=== PATIENT | male | born 1935 | race Caucasian/White ===

== ENCOUNTER 2017-01-24 10:45 | Inpatient (IN) | payer OTHER | END 2017-01-30 15:11 | disposition home health service (06) | DRG 393 | LOC: ER 10:45 → EROBS 11:53 → 4S 12:45 | DX: K52.1 Toxic gastroenteritis and colitis (principal); E43 Unspecified severe protein-calorie malnutrition; C79.9 Secondary malignant neoplasm of unspecified site; E86.0 Dehydration; E87.6 Hypokalemia; K52.9 Noninfective gastroenteritis and colitis, unspecified; J44.9 Chronic obstructive pulmonary disease, unspecified; I10 Essential (primary) hypertension; I44.7 Left bundle-branch block, unspecified; D72.829 Elevated white blood cell count, unspecified; R00.1 Bradycardia, unspecified; E83.51 Hypocalcemia; Z87.891 Personal history of nicotine dependence; Z79.899 Other long term (current) drug therapy; Z80.0 Family history of malignant neoplasm of digestive organs; Z68.23 Body mass index [BMI] 23.0-23.9, adult ==

== ENCOUNTER 2017-02-13 08:03 | Inpatient (IN) | payer OTHER ==
[~2017-02-13] VITALS: Ht 167.6 cm; Wt 64.9 kg
--- NOTE | ~2017-02-13 | EKG ---
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[employer] : 1935 Requested By: Jt Shukla Order Number: [id number] MD: Jimy Lagos Measurements Intervals [place] Rate: 55 P: 81 [place]: 152 QRS: 37 QRSD: 129 T: 66 QT: 513 QTc: 491 Interpretive Statements Sinus rhythm Atrial premature complex Left bundle branch block Compared to ECG 01/26/2017 12:29:04 Atrial premature complex(es) now present Sinus bradycardia no longer present Electronically Signed On 02-13-2017 12:46:10 CDT by Jimy Lagos [email or web address] <ELECTRONICALLY SIGNED> By: Jimy Lagos MD 02/13/17 1246 0839 Jimy Lagos MD /MAXIMINO
--- NOTE | ~2017-02-13 | HC ---
[facility] [place] [address] CONSULTATION Name: GREG TIRADO Room #: 426-P ADM IN M.R.#: [id number] Admission: 02/13/17 Attend Phys: Leighton Salamanca DO Discharge: Date of : 33 Report #: [id number] THIS REPORT FOR: //name// CC: Carlo Salamanca DATE OF SERVICE: 02/19/2017 Clinically, No change. Continuing calcitriol, calcium and yesterday supplementation with magnesium. Calcium marginally increased at 5.4 from 5.3. Phosphorus improving from 4.5 down to 3.9. Magnesium still mildly low, but slightly higher at 1.7. Ionized calcium from yesterday is still low at 3.0. We will continue current regimen until lab studies improve and safety margin becomes acceptable. The patient may need additional medication if the lab does not improve in the next 1-2 days. <ELECTRONICALLY SIGNED> By: Kevin Marinelli MD 02/20/17 1321 1152 1340 Kevin Marinelli MD /nt
--- NOTE | ~2017-02-13 | HC ---
[facility] [place] [address] CONSULTATION Name: GREG TIRADO Room #: 426-P ADM IN M.R.#: [id number] Admission: 02/13/17 Attend Phys: Leighton Salamanca DO Discharge: Date of : 34 Report #: [id number] THIS REPORT FOR: //name// CC: Carlo Salamanca DATE OF SERVICE: 02/18/2017 No clinical change. The patient is now receiving higher dose of calcium and 2 doses per day of Rocaltrol. He is still on corticosteroids and PPIs, both of which can further lower serum calcium. Today labs shows calcium that dropped slightly to 5.3, phosphorus increased slightly at 4.5, ionized calcium pending, magnesium improved, but still low at 1.6, free T4 is slightly low TSH, marginally low 25-hydroxy vitamin D level prior to initiation of treatment, was low at 12.3. We will repeat dosage of intravenous magnesium sulfate and an effort to normalize serum magnesium, which is required to normalize serum calcium. Meanwhile, continuing current therapeutic regimen and repeating lab studies in the a.m. <ELECTRONICALLY SIGNED> By: Kevin Marinelli MD 02/19/17 1140 1100 1351 Kevin Marinelli MD /nt
--- NOTE | ~2017-02-13 | HC ---
[facility] [place] [address] CONSULTATION Name: GREG TIRADO Room #: 426-P [facility] IN M.R.#: [id number] Admission: 02/13/17 Attend Phys: Leighton Salamanca DO Discharge: 02/21/17 Date of : 34 Report #: [id number] THIS REPORT FOR: //name// CC: Carlo Salamanca DATE OF SERVICE: 02/21/2017 No clinical change. Now receiving 3 doses per day of calcitriol as well as prior doses of calcium. Calcium today increased at 5.6. Ionized calcium from yesterday stable at 3.0. Unfortunately, for unknown reasons, lab did not do phosphorus and magnesium which are necessary after yesterday's reinfusion of magnesium sulfate. We will instruct the lab to run on blood drawn this morning and readjust replacement if necessary. <ELECTRONICALLY SIGNED> By: Kevin Marinelli MD 02/23/17 1122 1034 1125 Kevin Marinelli MD /nt
--- NOTE | ~2017-02-13 | HC ---
[facility] [address] CONSULTATION Name: GREG TIRADO Room #: 426-P ADM IN M.R.#: [id number] Admission: 02/13/17 Attend Phys: Leighton Salamanca DO Discharge: Date of : 34 Report #: [id number] THIS REPORT FOR: //name// CC: Carlo Salamanca DATE OF SERVICE: 02/20/2017 DATE OF SERVICE: 02/20/2017. This is an endocrine progress note. No clinical change. Continuing current regimen. Calcium still low at 5.2. Ionized calcium from yesterday stable at 3.0. Magnesium still borderline low at 1.7 in spite of further magnesium infusion. We will increase calcitriol to t.i.d. and repeat magnesium infusion in an effort to slowly normalize lab results. <ELECTRONICALLY SIGNED> By: Kevin Marinelli MD 02/21/17 1021 1328 2224 Kevin Marinelli MD /nt
--- NOTE | ~2017-02-13 | HC ---
[facility] [place] [address] CONSULTATION Name: GREG TIRADO Room #: 426-P ADM IN M.R.#: [id number] Admission: 02/13/17 Attend Phys: Leighton Salamanca DO Discharge: Date of : 34 Report #: [id number] THIS REPORT FOR: //name// CC: Carlo Salamanca DO HISTORY OF PRESENT ILLNESS: This patient is well known to me for treatment of recurrent/metastatic malignant melanoma. He was recently discharged from [facility] with diarrhea, felt to be related to his earlier immunotherapy. He was readmitted through the Emergency Room with complaints of shortness of breath over the weekend. I saw him in the office on 02/09/2017 and he returned also on 02/12/2017 to receive IV infusions of magnesium and electrolytes to correct those abnormalities associated with his diarrhea. He and his report that he had worsening shortness of breath even prior to the IV fluids on Wednesday. He has also developed some numbness in his legs and hands. He denies chills and fever. In spite of his hypocalcemia, he had not had tetany or positive Chvostek sign. His earlier diarrhea did not show any organisms and again it was felt to be related to bowel toxicity from earlier Yervoy and Opdivo. He last received Yervoy on 12/21/2016 and his last dose of Opdivo on 01/12/2017. He has been on high doses of steroids with a taper last week to 60 mg prednisone in the morning and 40 with lunch with improvement in his diarrhea. His current stools are more formed. His prior melanoma history dates to September of 2016 when he was found to have recurrence of his melanoma with metastasis involving liver, bone and lung. On his recent PET scan from December, all these had disappeared and he was felt to be ONELIA/in remission. ALLERGIES: None known. PAST MEDICAL HISTORY: Also positive for COPD. FAMILY HISTORY: Noncontributory. SOCIAL HISTORY: He is a nondrinker and nonsmoker. He lives with his who is also present. REVIEW OF SYSTEMS: As in the history of present illness. His diarrhea has improved. He is very weak with poor p.o. and is clinically depressed. He has self described paresthesias. PHYSICAL EXAMINATION: [facility] [address] [place] [address] CONSULTATION Name: GREG TIRADO Room #: 6[facility] IN ..#: [id number] Admission: 02/13/17 Attend Phys: Leighton Salamanca DO Discharge: Date of : 34 Report #: [id number] GENERAL: Shows a pale and frail white male. HEENT: He was normocephalic. NECK: Supple. CARDIOVASCULAR: Normal S1 and S2. CHEST: Clear. BACK: Shows previous primary site for his melanoma. SKIN: Shows widespread seborrheic keratosis and scaling. ABDOMEN: No organomegaly or masses. EXTREMITIES: Show lower extremity edema. NEUROLOGIC: No focal localizing signs. PSYCHIATRIC: Not agitated or confused. LABORATORY DATA: Reviewed and shows ongoing hypocalcemia. ASSESSMENT AND PLAN: His earlier hypokalemia and hypophosphatemia had improved last week and will need to be rechecked repeated. It will not be possible to correct his calcium without also addressing his magnesium. We had ordered a TSH, which was abnormal and reflex T3-T4 are pending as an outpatient. Also, we will recommend a parathormone level. He is asking again about discharge/going home but would await his followup laboratory studies. We have no further plans for any additional immunotherapy, which was last received a month ago and hopefully he will continue to recover and allow further taper in his prednisone dosing. By: 1304 0057 Lindsay Mars MD /nt
--- NOTE | ~2017-02-13 | HC ---
[facility] [place] [address] CONSULTATION Name: GREG TIRADO Room #: 426-P ADM IN M.R.#: [id number] Admission: 02/13/17 Attend Phys: Leighton Salamanca DO Discharge: Date of : 34 Report #: [id number] THIS REPORT FOR: //name// CC: Carlo Salamanca DATE OF SERVICE: 02/17/2017 One of multiple admissions for this 82-year-old white male with recent medical problems after receiving courses of chemotherapy for melanoma including immunotherapy. The patient has had several weeks of persistent diarrhea. He was also noted to have hypocalcemia, weakness and exacerbation of COPD. Since admission, the patient has been given oral calcium, complicated by the fact that the patient has difficulty swallowing. He was found to have a low albumin, low ionized calcium, low magnesium and elevated PTH. The patient was apparently no longer receiving chemotherapy, having received his last dose several weeks ago. Otherwise, the patient was healthy and active prior to discovery of the melanoma and institution of chemotherapy earlier this year. He has no prior history of calcium or endocrine abnormalities and no family history as well. CURRENT MEDICATION ORDERS: Include guaifenesin, temazepam, spironolactone, lisinopril, prednisone, hydrochlorothiazide, potassium, chloride, cholestyramine, phosphorus, carvedilol, albuterol, low-dose calcium carbonate in the form of 200 mg of elemental calcium t.i.d., ondansetron and he has received 1 dose of intravenous magnesium sulfate. LABORATORY DATA: From earlier on this admission, sodium 133, potassium 3.7, chloride 93, CO2 of 37, BUN 15, creatinine 1.1, glucose 168. AST 20, bilirubin 0.5. Calcium 6.0 with an ionized calcium of 2.6 and 3.2. Phosphorus 4.2. Magnesium 1.2 (prior to the one dose of intravenous replacement). Alkaline phosphatase 83, ALT 25, total protein 5.1, albumin 2.0 (which calculates out to a corrected serum calcium of 7.8). PHYSICAL EXAMINATION: GENERAL: Well-nourished, well-developed 82-year-old white male in no acute distress. The patient is somewhat hard of hearing, but responds to verbal commands appropriately. VITAL SIGNS: Height is reported to be 5 feet 6 inches, weight 143 pounds, heart rate 68 and regular, blood pressure 113/80. The patient is afebrile. SKIN: Somewhat pale. HEENT: PERRL. NECK: Supple. CHEST: Clear. ABDOMEN: Benign without masses, tenderness, organomegaly. Bowel sounds active. EXTREMITIES: Show no edema, cyanosis or clubbing. Peripheral pulses 2+ and [facility] [address] [place] [address] CONSULTATION Name: GREG TIRADO Room #: 426-P ADM IN M.R.#: [id number] Admission: 02/13/17 Attend Phys: Leighton Salamanca DO Discharge: Date of : 34 Report #: [id number] equal bilaterally. NEUROLOGIC: Grossly intact. Chvostek sign is negative. ASSESSMENT: Hypocalcemia, most likely due to either severe vitamin D deficiency or effects of immunotherapy. The patient has normal renal function. His PTH response to hypocalcemia is excellent. He also may have had some effects due to hypomagnesemia, which has now been replaced with one dose of intravenous magnesium supplementation. The patient's calcium is low with low ionized calcium, although some of the deficit is more obvious due to his low level of serum albumin. Phosphorus is normal. There is no evidence of hypoparathyroidism. PLAN: 1. The patient is on prednisone, which can cause hypocalcemia, but apparently this is necessary for his chemotherapy. He is now on hydrochlorothiazide, which will help decrease calcium excretion. He is on some calcium replacement, which needs to be significantly increased to a total of at least 1200 mg of elemental calcium per day given with meals. 2. We will check 25-hydroxy vitamin D level prior to initiating further therapy and then institute calcitriol 0.25 mcg b.i.d. We will separate calcium replacement from the patient's current phosphorus supplementation to avoid an elevated metabolic product. We will also separate all appropriate medication from the patient's current cholestyramine to avoid any alteration in absorption. 3. We will check serial calcium, ionized calcium, phosphorus and magnesium levels and replace as needed. 4. We will consider increasing calcitriol if it has not had some beneficial effect in 36-48 hours. Meanwhile, the patient is not at the extreme risk since this has obviously developed over an extended period of time allowing for his body to become used to the electrolyte deficiency. Thank you very much for this consultation. I will continue to follow the patient with you for evaluation and treatment of hypocalcemia. <ELECTRONICALLY SIGNED> By: Kevin Marinelli MD 02/18/17 1047 1417 51 Kevin Marinelli MD /nt
[~2017-02-13 08:03] MED LIST: ACCUNEB SO1.25 MG/1 INH; ADVAIR 250-501 EACH INH; ALDACTONE25 MG PO; CARVEDILOL12.5 MG PO; DOXYCYCLINE 10100 MG PO; FISH OIL 1,2001 EAC3 PO; GLUCOSAMINE &1 EAC1 PO; ICAPS TABLET1 EACH PO; K-DUR 20 MEQ T20 MEQ PO; KENALOG60 GM TP; MEDROL4 MG PO; MUCINEX TA600 MG/TA2 PO; ONDANSETRON HCL4 M2 PO; PREDNISONE 20 M20 M1 PO; PREVALITE PACKE1 PKT PO; ZESTORETIC 20-1 EAC3 PO
[2017-02-13 08:04] VITALS: BP 140/71
[2017-02-13] MEDS ORDERED: CARVEDILOL25 MG PO (08:18)
[2017-02-13 08:21] LABS: HEMATOCRIT 31.3 % (42.0-52.0); MCHC 32.1 g/dL (28.0-37.0); MCV 84.1 fL (80.0-100.0); PLATELET COUNT 123 thou/uL (150-400); RBC 3.72 mil/uL (4.50-6.00); RDW 16.5 % (10.5-14.5); WBC 17.9 thou/uL (4.0-11.0)
[2017-02-13 08:22] LABS: MANUAL DIFF YES
[2017-02-13 08:25] LABS: CREATININE 1.1 mg/dL (0.7-1.3); POTASSIUM 4.1 mmol/L (3.5-5.1)
[2017-02-13 08:28] LABS: CALCIUM 5.3 mg/dL (8.5-10.1)
[2017-02-13 08:34] LABS: TOTAL BILIRUBIN 0.5 mg/dL (<0.1-1.0)
[2017-02-13 08:35] LABS: TOTAL PROTEIN 5.1 g/dL (6.4-8.2); TROPONIN-I 0.02 ng/mL (<0.04-0.07)
[2017-02-13 08:41] LABS: ABSOLUTE NEUTROPHILS 17.2 thou/uL (1.4-8.2); ANISOCYTOSIS 1+; POLYCHROMASIA OCCASIONAL; TOTAL CELL COUNT 100
[2017-02-13 09:23] VITALS: BP 146/63
[2017-02-13 09:31] VITALS: BP 145/65
[2017-02-13] MEDS ORDERED: TUMS PO (11:13)
[2017-02-13 16:07] VITALS: BP 137/72
[2017-02-13 20:00] VITALS: BP 149/79
[2017-02-14 04:00] VITALS: BP 138/73
[2017-02-14 06:08] LABS: HEMATOCRIT 28.8 % (42.0-52.0); HEMOGLOBIN 9.4 gm/dL (14.0-18.0); MCH 27.4 pg (26.0-34.0); MCHC 32.8 g/dL (28.0-37.0); MCV 83.7 fL (80.0-100.0); PLATELET COUNT 102 thou/uL (150-400); RBC 3.44 mil/uL (4.50-6.00); RDW 16.4 % (10.5-14.5); WBC 14.5 thou/uL (4.0-11.0)
[2017-02-14 06:13] LABS: MANUAL DIFF YES
[2017-02-14 06:20] LABS: POTASSIUM 4.1 mmol/L (3.5-5.1)
[2017-02-14 06:29] LABS: CALCIUM 4.9 mg/dL (8.5-10.1)
[2017-02-14 08:00] VITALS: BP 153/80
[2017-02-14 08:29] LABS: ABSOLUTE NEUTROPHILS 13.8 thou/uL (1.4-8.2); ANISOCYTOSIS 1+; POLYCHROMASIA OCCASIONAL; TOTAL CELL COUNT 100
[2017-02-14 15:53] VITALS: BP 155/77
[2017-02-14 18:59] VITALS: BP 16/75
[2017-02-14 20:00] VITALS: BP 146/75
[2017-02-15 03:47] VITALS: BP 157/77
[2017-02-15 05:37] LABS: HEMATOCRIT 29.9 % (42.0-52.0); HEMOGLOBIN 9.7 gm/dL (14.0-18.0); MCH 26.9 pg (26.0-34.0); MCHC 32.3 g/dL (28.0-37.0); MCV 83.4 fL (80.0-100.0); PLATELET COUNT 101 thou/uL (150-400); RBC 3.58 mil/uL (4.50-6.00); RDW 16.5 % (10.5-14.5); WBC 15.1 thou/uL (4.0-11.0)
[2017-02-15 05:41] LABS: MANUAL DIFF YES
[2017-02-15 05:59] LABS: CREATININE 0.9 mg/dL (0.7-1.3); POTASSIUM 3.7 mmol/L (3.5-5.1)
[2017-02-15 06:01] LABS: CALCIUM 5.1 mg/dL (8.5-10.1)
[2017-02-15 07:00] VITALS: BP 171/73
[2017-02-15 09:16] LABS: ABSOLUTE NEUTROPHILS 14.9 thou/uL (1.4-8.2); ANISOCYTOSIS SLIGHT; ATYPICAL LYMPHS 1 %; POIKILOCYTOSIS SLIGHT; TOTAL CELL COUNT 100
[2017-02-15 15:30] VITALS: BP 163/73
[2017-02-15 16:57] VITALS: BP 163/73
[2017-02-15 23:09] VITALS: BP 167/73
[2017-02-16 04:00] VITALS: BP 146/75
[2017-02-16 04:22] LABS: HEMATOCRIT 28.8 % (42.0-52.0); HEMOGLOBIN 9.5 gm/dL (14.0-18.0); MCH 27.6 pg (26.0-34.0); MCHC 33.1 g/dL (28.0-37.0); MCV 83.3 fL (80.0-100.0); RBC 3.46 mil/uL (4.50-6.00); WBC 12.9 thou/uL (4.0-11.0)
[2017-02-16 04:32] LABS: MANUAL DIFF YES
[2017-02-16 04:39] LABS: CALCIUM 6.1 mg/dL (8.5-10.1); POTASSIUM 3.7 mmol/L (3.5-5.1)
[2017-02-16 05:16] LABS: ABSOLUTE NEUTROPHILS 12.1 thou/uL (1.4-8.2); PLATELET COUNT 89 thou/uL (150-400); PLATELET ESTIMATE DECREASED; TOTAL CELL COUNT 100
[2017-02-16 05:17] LABS: TOXIC GRANULATION SLIGHT
[2017-02-16 07:41] VITALS: BP 172/83
[2017-02-16 12:29] LABS: CREATININE 1.1 mg/dL (0.7-1.3); PHOSPHORUS 4.2 mg/dL (2.5-4.9)
[2017-02-16 15:15] VITALS: BP 171/71
[2017-02-16 15:48] VITALS: BP 171/71
[2017-02-16 20:00] VITALS: BP 142/62
[2017-02-17 04:21] VITALS: BP 158/69
[2017-02-17 07:44] VITALS: BP 113/80
[2017-02-17 14:27] LABS: MAGNESIUM 1.2 mg/dL (1.8-2.4); PHOSPHORUS 4.2 mg/dL (2.5-4.9)
[2017-02-17 15:08] VITALS: BP 145/73
[2017-02-17 20:00] VITALS: BP 158/68
[2017-02-18 04:00] VITALS: BP 162/65
[2017-02-18 06:22] LABS: MAGNESIUM 1.6 mg/dL (1.8-2.4); PHOSPHORUS 4.5 mg/dL (2.5-4.9)
[2017-02-18 06:25] LABS: CALCIUM 5.3 mg/dL (8.5-10.1)
[2017-02-18 08:01] VITALS: BP 179/83
[2017-02-18 15:07] VITALS: BP 157/65
[2017-02-18 20:13] VITALS: BP 149/65
[2017-02-19 04:11] VITALS: BP 153/72
[2017-02-19 06:28] LABS: CREATININE 0.9 mg/dL (0.7-1.3); MAGNESIUM 1.7 mg/dL (1.8-2.4); PHOSPHORUS 3.9 mg/dL (2.5-4.9); POTASSIUM 3.5 mmol/L (3.5-5.1)
[2017-02-19 06:29] LABS: CALCIUM 5.4 mg/dL (8.5-10.1)
[2017-02-19 07:16] VITALS: BP 159/78
[2017-02-19] MEDS ORDERED: K-PHOS NEUTRAL250 MG PO (09:26)
[2017-02-19] MEDS ORDERED: CALCITRIOL0.25 MCG PO (10:15)
[2017-02-19] MEDS ORDERED: PREVALITE PACKET4 GM PO (10:15)
[2017-02-19] MEDS ORDERED: PREDNISONE 20 M20 M1 PO (10:15)
[2017-02-19 16:55] VITALS: BP 148/77
[2017-02-19 19:35] VITALS: BP 156/81
[2017-02-20 04:05] VITALS: BP 145/80
[2017-02-20 08:00] VITALS: BP 171/84
[2017-02-20 16:00] VITALS: BP 163/68
[2017-02-20 20:00] VITALS: BP 179/75
[2017-02-21] VITALS: BP 179/86
[2017-02-21 04:00] VITALS: BP 179/86
[2017-02-21 06:10] LABS: HEMATOCRIT 28.8 % (42.0-52.0); HEMOGLOBIN 9.5 gm/dL (14.0-18.0); MCH 27.5 pg (26.0-34.0); MCHC 32.8 g/dL (28.0-37.0); MCV 83.7 fL (80.0-100.0); PLATELET COUNT 91 thou/uL (150-400); RBC 3.44 mil/uL (4.50-6.00); WBC 12.1 thou/uL (4.0-11.0)
[2017-02-21 06:12] LABS: MANUAL DIFF YES
[2017-02-21 06:25] LABS: CREATININE 0.9 mg/dL (0.7-1.3); POTASSIUM 3.5 mmol/L (3.5-5.1)
[2017-02-21 06:32] LABS: CALCIUM 5.6 mg/dL (8.5-10.1)
[2017-02-21 08:00] VITALS: BP 158/74
[2017-02-21 09:54] LABS: ABSOLUTE NEUTROPHILS 10.6 thou/uL (1.4-8.2); METAMYELOCYTES 1 %; TOTAL CELL COUNT 100
[2017-02-21 09:55] LABS: ANISOCYTOSIS 1+
[2017-02-21 11:00] LABS: MAGNESIUM 1.7 mg/dL (1.8-2.4); PHOSPHORUS 3.8 mg/dL (2.5-4.9)
== END 2017-02-21 11:54 | DRG 640 ==
LOC: ER 08:03 → EROBS 08:58 → 4E 08:58
PROVIDERS: Emergency Medicine; Family Medicine; Internal Medicine Endocrinology, Diabetes & Metabolism
DX: E83.51 Hypocalcemia (principal); E43 Unspecified severe protein-calorie malnutrition; J44.1 Chronic obstructive pulmonary disease with (acute) exacerbation; I10 Essential (primary) hypertension; E87.6 Hypokalemia; E83.39 Other disorders of phosphorus metabolism; C43.9 Malignant melanoma of skin, unspecified; R53.81 Other malaise; E83.42 Hypomagnesemia; Z68.23 Body mass index [BMI] 23.0-23.9, adult; Z85.820 Personal history of malignant melanoma of skin; Z79.899 Other long term (current) drug therapy; Z87.891 Personal history of nicotine dependence
CPT/HCPCS: 10183